=== PATIENT | female | born 1980 | race Caucasian/White ===

== ENCOUNTER 2017-01-03 22:07 | Emergency (ER) | payer OTHER, SELFPAY ==
[2017-01-03 22:30] VITALS: O2SAT 96
[2017-01-03] MEDS ORDERED: Zofran 4 MG/2 ML VIAL IV ONE (22:35)
[2017-01-03] MEDS ORDERED: Sodium Chloride 0.9% 1000 ML 1,000 ML IV STA (22:35)
[2017-01-03] MEDS ORDERED: PROTONIX 40 MG IV IV ONE ×2 (22:35→22:39)
--- NOTE | 2017-01-03 22:38 | ERPHSYRPT ---
- History of Present Illness Time Seen by Provider: 01/03/17 22:25 Historian: patient Exam Limitations: clinical condition Patient Subjective Stated Complaint: "i have been having stomach issues for the past 4 days. I quit drinking 4 weeks ago. i have drank for 18 years. i don't know what is wrong with me. I have vomioted 7-8 time in the last 24 hours. i drank tonight Triage Nursing Assessment: aox3, breathing easy unlabored, skin pink warm dry, steady gait, stronge smell of etoh noted Physician History: PATIENT WITH HISTORY OF ALCOHOL ABUSE, DRINKING TONIGHT HAS ASSOCIATED EPIGASTRIC PAINS WITH EMESIS. DENIES DIARRHEA, FEVER OR CHILLS. Timing/Duration: day(s) Activities at Onset: none Quality: cramping Abdominal Pain Onset Location: epigastric Pain Radiation: no radiation Severity of Pain-Max: moderate Severity of Pain-Current: moderate Associated Symptoms: nausea, vomiting Previous symptoms: no prior history Allergies/Adverse Reactions: haloperidol [From Haldol] Allergy (Mild, Verified 01/03/17 22:21) haloperidol lactate [From Haldol] Allergy (Mild, Verified 01/03/17 22:21) Hx Tetanus, Diphtheria Vaccination/Date Given: Yes Hx Influenza Vaccination/Date Given: No Hx Pneumococcal Vaccination/Date Given: No - Review of Systems Constitutional: No Fever, No Chills Eyes: No Symptoms Ears, Nose, & Throat: No Symptoms Respiratory: No Symptoms, No Cough, No Dyspnea Cardiac: No Symptoms, No Chest Pain, No Edema, No Syncope Abdominal/Gastrointestinal: Abdominal Pain, Nausea, Vomiting, No Diarrhea Genitourinary Symptoms: No Dysuria Musculoskeletal: No Back Pain, No Neck Pain Skin: No Symptoms, No Rash Neurological: No Dizziness, No Focal Weakness, No Sensory Changes Psychological: No Symptoms Endocrine: No Symptoms All Other Systems: Reviewed and Negative - Past Medical History Pertinent Past Medical History: Yes Neurological History: No Pertinent History ENT History: No Pertinent History Cardiac History: No Pertinent History Respiratory History: Asthma Endocrine Medical History: No Pertinent History Musculoskeletal History: Fractures GI Medical History: Hepatitis History: No Pertinent History Psycho-Social History: Bipolar Female Reproductive Disorders: Other Other Medical History: hepatitis C - Past Surgical History Past Surgical History: Yes Neuro Surgical History: No Pertinent History Cardiac: No Pertinent History Respiratory: No Pertinent History Gastrointestinal: No Pertinent History Musculoskeletal: No Pertinent History Female Surgical History: Section Other Surgical History: tubal ligation - Social History Smoking Status: Current every day smoker How long have you smoked: 25 YEARS Exposure to second hand smoke: Yes Drug Use: none Patient Lives Alone: No - Female History Hx Last Menstrual Period: 12/31/16 Hx Now: No - Nursing Vital Signs Nursing Vital Signs: Initial Vital Signs Temperature 97.9 F Temperature Source Oral Pulse Rate 107 Respiratory Rate 16 Blood Pressure [Right Arm] 115/79 Pain Intensity 0 - Physical Exam General Appearance: no apparent distress, alert Eye Exam: PERRL/EOMI, eyes nml inspection Ears, Nose, Throat Exam: normal ENT inspection, pharynx normal, moist mucous membranes Neck Exam: normal inspection, non-tender, supple, full range of motion Respiratory Exam: normal breath sounds, lungs clear, No respiratory distress Cardiovascular Exam: regular rate/rhythm, normal heart sounds Gastrointestinal/Abdomen Exam: soft, normal bowel sounds, tenderness ( EPIGASTRIC TENDERNESS), No mass Back Exam: normal inspection, normal range of motion, No CVA tenderness, No vertebral tenderness Extremity Exam: normal inspection, normal range of motion, pelvis stable Neurologic Exam: alert, oriented x 3, cooperative, normal mood/affect, nml cerebellar function, sensation nml, No motor deficits Skin Exam: normal color, warm, dry SpO2 Interpretation: normal SpO2: 96 Oxygen Delivery: Room Air Ordered Tests: Active Orders 24 hr Category Date Time Status IV Insertion STAT Care 01/03/17 22:35 Active AMYLASE Stat Lab 01/03/17 22:40 Completed CBC W DIFF Stat Lab 01/03/17 22:40 Completed CMP Stat Lab 01/03/17 22:40 Completed Ethyl Alcohol,Urine Stat Lab 01/03/17 23:25 Completed HCG,QUALITATIVE URINE Stat Lab 01/04/17 00:15 Completed LIPASE Stat Lab 01/03/17 22:40 Completed UA W/ MICROSCOPIC Stat Lab 01/03/17 23:25 Completed Urine Triage Profile Stat Lab 01/03/17 23:25 Completed Medication Summary Discontinued Medications Generic Name Dose Route Start Last Admin Trade Name Freq PRN Reason Stop Dose Admin Sodium Chloride 1,000 mls @ 999 mls/hr 01/03/17 22:35 01/03/17 22:44 Sodium Chloride 0.9% 1000 Ml IV 01/03/17 23:35 999 mls/hr .Q1H1M STA Administration Sodium Chloride Confirm 01/03/17 22:39 Sodium Chloride 0.9% 1000 Ml Administered 01/03/17 22:40 Dose 1,000 mls @ ud .ROUTE .STK-MED ONE Ondansetron HCl 4 mg 01/03/17 22:35 01/03/17 22:44 Zofran 4 Mg/2 Ml Vial IV 01/03/17 22:36 4 mg STAT ONE Administration Ondansetron HCl Confirm 01/03/17 22:39 Zofran 4 Mg/2 Ml Vial Administered 01/03/17 22:40 Dose 4 mg .ROUTE .STK-MED ONE Pantoprazole Sodium 40 mg 01/03/17 22:35 01/03/17 22:44 Protonix 40 Mg Iv IV 01/03/17 22:36 40 mg STAT ONE Administration Pantoprazole Sodium Confirm 01/03/17 22:39 Protonix 40 Mg Iv Administered 01/03/17 22:40 Dose 40 mg IV .STK-MED ONE Lab/Rad Data: Laboratory Result Diagrams 01/03/17 22:40 01/03/17 22:40 Laboratory Results 01/04/17 01/03/17 01/03/17 Range/Units 00:15 23:25 23:25 WBC (4.0-10.5) K/mm3 RBC (4.1-5.4) M/mm3 Hgb (12.0-16.0) gm/dl Hct (35-47) % MCV (78-100) fl MCH (26-32) pg MCHC (32-36) g/dl RDW (11.5-14.0) % Plt Count (150-450) K/mm3 MPV (6-9.5) fl Gran % (36.0-66.0) % Lymphocytes % (24.0-44.0) % Monocytes % (0.0-12.0) % Eosinophils % (0.00-5.0) % Basophils % (0.0-0.4) % Basophils # (0-0.4) Sodium (136-145) mEq/L Potassium (3.5-5.1) mEq/L Chloride (98-107) mEq/L Carbon Dioxide (21-32) mEq/L Anion Gap (5-15) MEQ/L BUN (9-20) mg/dL Creatinine (0.55-1.30) mg/dl Estimated GFR ML/MIN Glucose (70-110) MG/DL Calcium (8.5-10.1) mg/dL Total Bilirubin (0.2-1.0) mg/dL AST (15-37) U/L ALT (12-78) U/L Alkaline Phosphatase (46-116) U/L Serum Total Protein (6.4-8.2) gm/dL Albumin (3.4-5.0) g/dL Amylase (25-115) U/L Lipase (73-393) U/L Ur Collection Type Urine Color (YELLOW) Urine Appearance (CLEAR) Urine pH 5.5 (5-6) Ur Specific [place] (1.005-1.025) Urine Protein (Negative) Urine Glucose (UA) (NEGATIVE) mg/dL Urine Ketones (NEGATIVE) Urine Nitrite (NEGATIVE) Urine Bilirubin (NEGATIVE) Urine Urobilinogen (0-1) mg/dL Urine WBC (Auto) (NEGATIVE) Urine RBC (Auto) (0-5) Davide/ul Urine Microscopic RBC (0-2) /HPF Urine Microscopic WBC (0-5) /HPF Ur Epithelial Cells (FEW) /HPF Urine HCG, Qual NEGATIVE (Negative) Urine Opiates Level NEG. (NEGATIVE) Ur Methadone NEG. (NEGATIVE) Urine Barbiturates NEG. (NEGATIVE) Ur Phencyclidine (PCP) NEG. (NEGATIVE) Urine Amphetamine NEG. (NEGATIVE) U Benzodiazepine Level NEG. (NEGATIVE) Urine Cocaine NEG. (NEGATIVE) Urine Marijuana (THC) POS. (NEGATIVE) Urine Ethyl Alcohol 205 H (0.00-20) mg/dl Specimen Received 01/03/17 01/03/17 01/03/17 Range/Units 23:25 22:40 22:40 WBC 10.7 H (4.0-10.5) K/mm3 RBC 4.98 (4.1-5.4) M/mm3 Hgb 16.1 H (12.0-16.0) gm/dl Hct 47.6 H (35-47) % MCV 95.6 (78-100) fl MCH 32.3 H (26-32) pg MCHC 33.8 (32-36) g/dl RDW 12.0 (11.5-14.0) % Plt Count 308 (150-450) K/mm3 MPV 9.2 (6-9.5) fl Gran % 62.9 (36.0-66.0) % Lymphocytes % 29.4 (24.0-44.0) % Monocytes % 6.6 (0.0-12.0) % Eosinophils % 0.9 (0.00-5.0) % Basophils % 0.2 (0.0-0.4) % Basophils # 0.02 (0-0.4) Sodium 137 (136-145) mEq/L Potassium 3.5 (3.5-5.1) mEq/L Chloride 99 (98-107) mEq/L Carbon Dioxide 24.0 (21-32) mEq/L Anion Gap 17.1 H (5-15) MEQ/L BUN 5 L (9-20) mg/dL Creatinine 0.84 (0.55-1.30) mg/dl Estimated GFR > 60 ML/MIN Glucose 104 (70-110) MG/DL Calcium 8.9 (8.5-10.1) mg/dL Total Bilirubin 0.5 (0.2-1.0) mg/dL AST 88 H (15-37) U/L ALT 111 H (12-78) U/L Alkaline Phosphatase 75 (46-116) U/L Serum Total Protein 8.8 H (6.4-8.2) gm/dL Albumin 4.3 (3.4-5.0) g/dL Amylase 88 (25-115) U/L Lipase 316 (73-393) U/L Ur Collection Type CLEAN CATCH Urine Color LT.YELLOW (YELLOW) Urine Appearance CLEAR (CLEAR) Urine pH 5.5 (5-6) Ur Specific [place] <=1.005 (1.005-1.025) Urine Protein NEGATIVE (Negative) Urine Glucose (UA) NEGATIVE (NEGATIVE) mg/dL Urine Ketones NEGATIVE (NEGATIVE) Urine Nitrite NEGATIVE (NEGATIVE) Urine Bilirubin NEGATIVE (NEGATIVE) Urine Urobilinogen 0.2 (0-1) mg/dL Urine WBC (Auto) TRACE (NEGATIVE) Urine RBC (Auto) NEGATIVE (0-5) Davide/ul Urine Microscopic RBC 0-2 (0-2) /HPF Urine Microscopic WBC 0-2 (0-5) /HPF Ur Epithelial Cells FEW (FEW) /HPF Urine HCG, Qual (Negative) Urine Opiates Level (NEGATIVE) Ur Methadone (NEGATIVE) Urine Barbiturates (NEGATIVE) Ur Phencyclidine (PCP) (NEGATIVE) Urine Amphetamine (NEGATIVE) U Benzodiazepine Level (NEGATIVE) Urine Cocaine (NEGATIVE) Urine Marijuana (THC) (NEGATIVE) Urine Ethyl Alcohol (0.00-20) mg/dl Specimen Received 01/03/17 2330 - Progress Progress Note: 01/04/17 00:31 PATIENT ADMINISTERED IV NORMAL SALINE 1 LITER/HR, ZOFRAN 4MG, PROTONIX 40MG IV 01/04/17 00:32 PATIENT HAD NO EVIDENCE OF EMESIS THROUGHOUT HER EMERGENCY VISIT Counseled pt/family regarding: lab results, diagnosis, need for follow-up - Departure Time of Disposition: 00:40 Departure Disposition: Home Clinical Impression: ACUTE GASTRITIS, ALCOHOL INTOXICATION Condition: Stable Critical Care Time: No Referrals: DOCTOR,NO FAMILY [Primary Care Provider] - Additional Instructions: PEPCID 20MG TWICE DAILY FOR 2 WEEKS. ZOFRAN 4MG EVERY 4 HOURS FOR NAUSEA OR VOMITING. AVOID DRINKING ALCOHOL. CONSULT YOUR FAMILY PHYSICIAN FOR EVALUATION THIS WEEK. Prescriptions: Ondansetron [Zofran Odt] 4 mg PO Q4H PRN PRN #6 tab.rapdis PRN Reason: Nausea Famotidine 20 mg [Pepcid 20 MG] 20 mg PO BID #30 tablet
[2017-01-03] MEDS ORDERED: Sodium Chloride 0.9% 1000 ML 1,000 ML ONE (22:39)
[2017-01-03] MEDS ORDERED: Zofran 4 MG/2 ML VIAL ONE (22:39)
[2017-01-03 22:44] LABS: BASOPHIL % 0.2 % (0.0-0.4); Eosinophil % 0.9 % (0.00-5.0); Granulocytes % 62.9 % (36.0-66.0); Lymphocytes % 29.4 % (24.0-44.0); Mean Cell Volume 95.6 fl (78-100); Mean Corpuscular Hemoglobin 32.3 pg (26-32); Mean Platelet Volume 9.2 fl (6-9.5); Monocytes % 6.6 % (0.0-12.0); Platelet Count 308 K/mm3 (150-450); Red Blood Count 4.98 M/mm3 (4.1-5.4); White Blood Count 10.7 K/mm3 (4.0-10.5)
[2017-01-03 23:21] LABS: ALBUMIN 4.3 g/dL (3.4-5.0); ALKALINE PHOSPHATASE 75 U/L (46-116); ANION GAP 17.1 MEQ/L (5-15); BILIRUBIN,TOTAL 0.5 mg/dL (0.2-1.0); BLOOD UREA NITROGEN 5 mg/dL (9-20); CHLORIDE 99 mEq/L (98-107); Glucose 104 MG/DL (70-110); LIPASE 316 U/L (73-393); Potassium 3.5 mEq/L (3.5-5.1); SGOT/AST 88 U/L (15-37); SGPT/ALT 111 U/L (12-78); SODIUM 137 mEq/L (136-145); Total Protein 8.8 gm/dL (6.4-8.2)
[2017-01-04 00:11] LABS: COMPLETE URINE MICROSCOPIC? YES; Collection Type CLEAN CATCH; Epithelial Cells FEW /HPF (FEW); Ph 5.5 (5-6); WBC 0-2 /HPF (0-5)
[2017-01-04 00:50] VITALS: BP 128/82; PULSE 96
== END 2017-01-04 00:50 | disposition home or self-care (01) ==
LOC: ED 22:07
DX: K29.70 Gastritis, unspecified, without bleeding (principal); F10.129 Alcohol abuse with intoxication, unspecified; R11.2 Nausea with vomiting, unspecified; R10.13 Epigastric pain
CPT/HCPCS: 36000; 36415; 80053; 80307; 80320; 81000; 81002; 82150; 83690; 83986; 84703; 85025; 96374; 96375; 99284; J2405

== ENCOUNTER 2017-11-20 13:54 | Emergency (ER) | payer OTHER, SELFPAY ==
[2017-11-20 14:20] VITALS: O2SAT 99
[2017-11-20] MEDS ORDERED: ROCEPHIN 250 MG INJ IM ONE (14:44)
[2017-11-20] MEDS ORDERED: Zithromax 250 MG TABLET PO ONE (14:49)
[2017-11-20 14:52] LABS: Appearance CLOUDY (CLEAR); Bilirubin NEGATIVE (NEGATIVE); Blood 250 Ery/ul (0-5); Glucose NEGATIVE (NEGATIVE); Ketones NEGATIVE (NEGATIVE); Leukocyte Esterase 2+ (NEGATIVE); Nitrite NEGATIVE (NEGATIVE); Protein,Urine Dip TRACE (Negative); Specific Gravity 1.025 (1.005-1.025); Urobilinogen NORMAL mg/dL (0-1)
--- NOTE | 2017-11-20 14:55 | ERPHSYRPT ---
- History of Present Illness Time Seen by Provider: 11/20/17 14:05 Source: patient Patient Subjective Stated Complaint: pt here for vaginal discharge for 3 days now,yellow/green discharge Triage Nursing Assessment: pt alert, walked in resp easy, skin w/d/p Physician History: CC: vaginal discharge Hx: 36 y/o patient of Dr David with hx of Hep C. LMP normal. She has green foul smelling vaginal discharge for the past 3 days, started 2 days after unprotected intercourse with a new male partner 5 days ago. Only other sexual partner in past 6 months was a different female partner 4 months ago. She has burning and discharge. No fever, chills, abd pain. No prior hx of STD. Timing/Duration: day(s) (3) Severity of Pain-Max: severe Severity of Pain-Current: moderate Allergies/Adverse Reactions: haloperidol [From Haldol] Allergy (Mild, Verified 11/20/17 14:20) haloperidol lactate [From Haldol] Allergy (Mild, Verified 11/20/17 14:20) Hx Tetanus, Diphtheria Vaccination/Date Given: Yes Hx Influenza Vaccination/Date Given: No Hx Pneumococcal Vaccination/Date Given: No - Review of Systems Constitutional: No Fever, No Chills Eyes: No Symptoms Respiratory: No Dyspnea Cardiac: No Chest Pain Abdominal/Gastrointestinal: No Abdominal Pain, No Nausea, No Vomiting, No Diarrhea Genitourinary Symptoms: Dysuria, Vaginal Discharge, No Musculoskeletal: No Back Pain Skin: No Rash Neurological: No Headache All Other Systems: Reviewed and Negative - Past Medical History Pertinent Past Medical History: Yes Neurological History: No Pertinent History ENT History: No Pertinent History Cardiac History: No Pertinent History Respiratory History: Asthma Endocrine Medical History: No Pertinent History Musculoskeletal History: Fractures GI Medical History: Hepatitis History: No Pertinent History Psycho-Social History: Bipolar Female Reproductive Disorders: Other Other Medical History: hepatitis C - Past Surgical History Past Surgical History: Yes Neuro Surgical History: No Pertinent History Cardiac: No Pertinent History Respiratory: No Pertinent History Gastrointestinal: No Pertinent History Musculoskeletal: No Pertinent History Female Surgical History: Section Other Surgical History: tubal ligation - Social History Smoking Status: Current every day smoker How long have you smoked: 25 YEARS Exposure to second hand smoke: Yes Drug Use: marijuana Patient Lives Alone: No - Female History Hx Last Menstrual Period: 3 weeks ago Hx Now: No - Nursing Vital Signs Nursing Vital Signs: Initial Vital Signs Temperature 97.8 F 11/20/17 14:16 Pulse Rate 116 H 11/20/17 14:16 Respiratory Rate 16 11/20/17 14:16 Blood Pressure 125/91 11/20/17 14:16 O2 Sat by Pulse Oximetry 99 11/20/17 14:16 Pain Scale Pain Intensity 0 - Physical Exam General Appearance: alert Eye Exam: PERRL/EOMI Ears, Nose, Throat Exam: normal ENT inspection, moist mucous membranes Neck Exam: normal inspection, non-tender, supple Respiratory Exam: normal breath sounds Cardiovascular Exam: regular rate/rhythm Gastrointestinal/Abdomen Exam: soft, No tenderness, No distention, No mass, No guarding Pelvic Exam: normal external exam, vaginal discharge (green, raman), other ( friable pedunculated cervix with firm polypoid lesions), No adnexal tenderness, No cervical motion tenderness, No uterine tenderness Extremity Exam: normal inspection Neurologic Exam: alert, oriented x 3, cooperative Skin Exam: warm, dry, No rash SpO2: 99 Oxygen Delivery: Room Air - Course Nursing assessment & vital signs reviewed: Yes Ordered Tests: Active Orders 24 hr Category Date Time Status Cath for Specimen-Straight STAT Care 11/20/17 14:17 Active Pelvic Exam Assist STAT Care 11/20/17 14:16 Active CULTURE,URINE Stat Lab 11/20/17 14:30 Received HCG,QUALITATIVE URINE Stat Lab 11/20/17 14:25 Completed UA W/ MICROSCOPIC Stat Lab 11/20/17 14:30 Completed Wet Prep Stat Lab 11/20/17 14:30 Completed Medication Summary Discontinued Medications Generic Name Dose Route Start Last Admin Trade Name Bi PRN Reason Stop Dose Admin Azithromycin 1,000 mg 11/20/17 14:49 11/20/17 15:01 Zithromax 250 Mg Tablet PO 11/20/17 14:50 1,000 mg STAT ONE Administration Azithromycin Confirm 11/20/17 14:56 Zithromax 250 Mg Tablet Administered 11/20/17 14:57 Dose 1,000 mg .ROUTE .STK-MED ONE Ceftriaxone Sodium 250 mg 11/20/17 14:44 11/20/17 15:01 Rocephin 250 Mg Inj IM 11/20/17 14:45 250 mg STAT ONE Administration Ceftriaxone Sodium Confirm 11/20/17 14:57 Rocephin 500 Mg Inj Administered 11/20/17 14:58 Dose 500 mg .ROUTE .STK-MED ONE Lab/Rad Data: Laboratory Results 11/20/17 11/20/17 Range/Units 14:30 14:25 Ur Collection Type CCMS Urine Color YELLOW (YELLOW) Urine Appearance CLOUDY (CLEAR) Urine pH 5.0 (5-6) Ur Specific [place] 1.025 (1.005-1.025) Urine Protein TRACE (Negative) Urine Ketones NEGATIVE (NEGATIVE) Urine Blood 250 (0-5) Davide/ul Urine Nitrite NEGATIVE (NEGATIVE) Urine Bilirubin NEGATIVE (NEGATIVE) Urine Urobilinogen NORMAL (0-1) mg/dL Ur Leukocyte Esterase 2+ (NEGATIVE) Urine Microscopic RBC 5-10 (0-2) /HPF Urine Microscopic WBC 5-10 (0-5) /HPF Ur Epithelial Cells MANY (FEW) /HPF Urine Bacteria MANY (NEGATIVE) /HPF Urine Culture Reflexed YES (NO) Urine Glucose NEGATIVE (NEGATIVE) mg/dL Urine HCG, Qual NEGATIVE (Negative) WBC (Wet Prep) Many RBC (Wet Prep) Moderate Epi Cells (Wet Prep) Moderate Bacteria (Wet Prep) Many Clue Cells (Wet Prep) Moderate Trichomonas (Wet Prep) None Seen Budding Yeast (Wet Prp) None Seen Specimen Received 1430 11/20/17 - Progress Progress Note: 11/20/17 14:56 She spoke to her recent male partner and advised him she had discharge. He told her prior partners had told him the same thing. She declines cath UA, HIV, syphillis, or hep B testing. Rocephin/Zithromax given. Advised pt to see primary care or streetcar operator to obtain pap and pelvic exam as she has an abnormal appearing cervix which needs to be checked. 11/20/17 15:10 Trich negative. Counseled pt/family regarding: lab results, diagnosis, need for follow-up - Departure Time of Disposition: 15:11 Departure Disposition: Home Clinical Impression: Cervicitis Condition: Stable Critical Care Time: No Referrals: [facility] [NON-STAFF PHY W/O PRIVILEGES] - Instructions: Sexually-Transmitted Diseases (DC), STD Prevention Additional Instructions: Your sexual partners need to be tested and treated for STD's as well before intercourse. You need to follow up with Dr Bourgasser for pap smear and pelvic examination to recheck your cervix.
[2017-11-20] MEDS ORDERED: Zithromax 250 MG TABLET ONE (14:56)
[2017-11-20] MEDS ORDERED: Rocephin 500 MG INJ ONE (14:57)
[2017-11-20 15:06] LABS: Bacteria MANY /HPF (NEGATIVE); Bacteria Many; Clue Cells Moderate; Epithelial Cells MANY /HPF (FEW); Trichomonas None Seen
[2017-11-20 15:07] LABS: Red Blood Cells Moderate; White Blood Cells Many
[2017-11-20 15:31] VITALS: BP 113/80; PULSE 88
== END 2017-11-20 15:31 | disposition home or self-care (01) ==
LOC: ED 13:54
DX: N72 Inflammatory disease of cervix uteri (principal)
CPT/HCPCS: 81000; 84703; 87077; 87086; 87186; 87210; 87490; 87590; 96372; 99283; 99284; J0696; P9612; A9270-GY

== ENCOUNTER 2019-06-29 03:38 | Emergency (ER) | payer MEDICAID ==
[2019-06-29] MEDS ORDERED: Rocephin 1000 MG INJ IM ONE (04:01)
[2019-06-29] MEDS ORDERED: BACTRIM DS TABLET PO STA (04:01)
[2019-06-29] MEDS ORDERED: NORCO 5/325 MG PO ONE (04:02)
[2019-06-29] MEDS ORDERED: Rocephin 1000 MG INJ ONE (04:04)
[2019-06-29] MEDS ORDERED: BACTRIM DS TABLET PO ONE (04:04)
[2019-06-29] MEDS ORDERED: NORCO 5/325 MG ONE (04:04)
--- NOTE | 2019-06-29 04:07 | ERPHSYRPT ---
- History of Present Illness Time Seen by Provider: 06/29/19 03:50 Source: patient Exam Limitations: no limitations Patient Subjective Stated Complaint: pt states she has a knot near her vagina and has had increasing pain tonight. Triage Nursing Assessment: pt alert and oriented, answers questions approp. pt ambulatory with steady gait noted. respirations nonlabored with lungs cta. skin pink warm and dry. Physician History: painful, red, tender area near her vagina for last 2 days. Timing/Duration: day(s) (2) Quality: painful Severity: moderate Location: genitalia Possible Causes: no cause identified Associated Symptoms: edema, No blisters, No change in skin texture, No difficulty breathing, No fever, No flushing, No headache, No hives, No jaundice , No malaise, No nasal congestion, No numbness, No pallor, No paresthesia, No petechiae, No rash Allergies/Adverse Reactions: haloperidol [From Haldol] Allergy (Mild, Verified 11/20/17 14:20) haloperidol lactate [From Haldol] Allergy (Mild, Verified 11/20/17 14:20) Hx Tetanus, Diphtheria Vaccination/Date Given: Yes Hx Influenza Vaccination/Date Given: No Hx Pneumococcal Vaccination/Date Given: No Immunizations Up to Date: Yes - Review of Systems Constitutional: No Fever, No Chills Eyes: No Symptoms Ears, Nose, & Throat: No Symptoms Respiratory: No Cough, No Dyspnea Cardiac: No Chest Pain, No Edema, No Syncope Abdominal/Gastrointestinal: No Abdominal Pain, No Nausea, No Vomiting, No Diarrhea Genitourinary Symptoms: No Dysuria Musculoskeletal: Other (painful, red, tender area near her vagina), No Back Pain , No Neck Pain Skin: Other (painful, red, tender area near her vagina), No Rash Neurological: No Dizziness, No Focal Weakness, No Sensory Changes Psychological: No Symptoms Endocrine: No Symptoms All Other Systems: Reviewed and Negative - Past Medical History Pertinent Past Medical History: Yes Neurological History: No Pertinent History ENT History: No Pertinent History Cardiac History: No Pertinent History Respiratory History: Asthma Endocrine Medical History: No Pertinent History Musculoskeletal History: Fractures GI Medical History: Hepatitis History: No Pertinent History Psycho-Social History: Bipolar Female Reproductive Disorders: Other Other Medical History: hepatitis C - Past Surgical History Past Surgical History: Yes Neuro Surgical History: No Pertinent History Cardiac: No Pertinent History Respiratory: No Pertinent History Gastrointestinal: No Pertinent History Musculoskeletal: No Pertinent History Female Surgical History: Section Other Surgical History: tubal ligation, cold cone - Social History Smoking Status: Current every day smoker How long have you smoked: 25 YEARS Exposure to second hand smoke: Yes Drug Use: marijuana, methamphetamines Patient Lives Alone: No - Female History Hx Last Menstrual Period: 3 weeks ago Hx Now: No - Nursing Vital Signs Nursing Vital Signs: Initial Vital Signs Temperature 97.9 F 06/29/19 03:46 Pulse Rate 105 H 06/29/19 03:46 Respiratory Rate 16 06/29/19 03:46 Blood Pressure 128/84 06/29/19 03:46 O2 Sat by Pulse Oximetry 99 06/29/19 03:46 Pain Scale Pain Intensity 6 - Physical Exam General Appearance: no apparent distress, alert Eye Exam: PERRL/EOMI, eyes nml inspection Ears, Nose, Throat Exam: normal ENT inspection, pharynx normal, moist mucous membranes Neck Exam: normal inspection, non-tender, supple, full range of motion Respiratory Exam: normal breath sounds, lungs clear, No respiratory distress Cardiovascular Exam: regular rate/rhythm, normal heart sounds Gastrointestinal/Abdomen Exam: soft, mass, No tenderness Pelvic Exam: other (painful, red, tender area near her vagina C/W Folliculitis) Back Exam: normal inspection, normal range of motion, No CVA tenderness, No vertebral tenderness Extremity Exam: normal inspection, normal range of motion Neurologic Exam: alert, oriented x 3, cooperative, normal mood/affect, sensation nml, No motor deficits Skin Exam: normal color, warm, dry, other (painful, red, tender area near her vagina C/W Folliculitis) SpO2 Interpretation: normal SpO2: 99 O2 Delivery: Room Air - Course Nursing assessment & vital signs reviewed: Yes - Progress Progress: unchanged Progress Note: 06/29/19 04:05 stable Counseled pt/family regarding: diagnosis, need for follow-up - Departure Departure Disposition: Home Clinical Impression: Folliculitis Condition: Stable Critical Care Time: No Referrals: DOCTOR,NO FAMILY [Primary Care Provider] - 06/30/19 Instructions: Folliculitis (DC) Prescriptions: Cephalexin Mh 500 mg [Keflex 500 mg] 500 mg PO BID 7 Days #14 capsule Smz/Tmp Ds Tablet [Bactrim Ds Tablet] 1 udtab PO BID #14 tablet
[2019-06-29 04:41] VITALS: BP 126/87; PULSE 90; O2SAT 97
== END 2019-06-29 04:41 | disposition home or self-care (01) ==
LOC: ED 03:38
DX: L73.8 Other specified follicular disorders (principal)
CPT/HCPCS: 96372; 99284; J0696; A9270-GY

== ENCOUNTER 2019-10-20 22:43 | Emergency (ER) | payer MEDICAID ==
[2012-08-01 13:26] VITALS: BP 130/69
[2019-10-20] MEDS ORDERED: Zofran 4 MG/2 ML VIAL IV ONE (22:50)
[2019-10-20] MEDS ORDERED: Sodium Chloride 0.9% 1000 ML 1,000 ML IV STA (22:50)
[2019-10-20] MEDS ORDERED: Golytely Solution 4000 ML PO ONE (23:00)
[2019-10-20] MEDS ORDERED: Sodium Chloride 0.9% 1000 ML 0 ML ONE (23:09)
[2019-10-20] MEDS ORDERED: Zofran 4 MG/2 ML VIAL ONE ×2 (23:09→23:34)
[2019-10-20 23:17] LABS: Absolute Neutrophil Ct (ANC) 4.65 (1.4-6.9); BASOPHIL % 0.2 % (0.0-0.4); Basophil (Absolute #) 0.02 (0-0.4); Eosinophil % 3.7 % (0.00-5.0); Hematocrit 43.4 % (35-47); Hemoglobin 14.3 gm/dl (12.0-16.0); Lymphocyte (Absolute #) 2.46 (1.0-4.6); Lymphocytes % 30.7 % (24.0-44.0); Mean Cell Volume 94.3 fl (78-100); Mean Corpuscular Hemoglobin 31.1 pg (26-32); Mean Corpuscular Hgb Concent. 32.9 g/dl (32-36); Mean Platelet Volume 9.8 fl (7.5-11.0); Monocyte (Absolute #) 0.58 (0.0-1.3); Monocytes % 7.2 % (0.0-12.0); Neutrophil % 58.2 % (36.0-66.0); Platelet Count 150 K/mm3 (150-450); Red Cell Distribution Width 12.5 % (11.5-14.0)
[2019-10-20] MEDS ORDERED: Sodium Chloride 0.9% 1000 ML 1,000 ML ONE (23:35)
[2019-10-20 23:44] LABS: Appearance SLIGHTLY CLOUDY (CLEAR); Bilirubin NEGATIVE (NEGATIVE); Blood NEGATIVE Ery/ul (0-5); Epithelial Cells RARE /HPF (FEW); Glucose NEGATIVE (NEGATIVE); Hyaline Casts 0-2 /LPF (0-2); Ketones NEGATIVE (NEGATIVE); Leukocyte Esterase TRACE (NEGATIVE); Mucus SLIGHT /HPF (NEGATIVE); Nitrite NEGATIVE (NEGATIVE); Protein,Urine Dip 30 (Negative); RBC 0-2 /HPF (0-2); Specific Gravity 1.021 (1.005-1.025); Urobilinogen 4 mg/dL (0-1)
[2019-10-20 23:50] LABS: Slide Review 1 YES
[2019-10-20 23:52] LABS: Barbiturate,Urine NEGATIVE (NEGATIVE); Benzodiazepine,Urine NEGATIVE (NEGATIVE); Cocaine,Urine NEGATIVE (NEGATIVE); Methadone,Urine NEGATIVE (NEGATIVE); Opiate,Urine NEGATIVE (NEGATIVE); PCP,Urine NEGATIVE (NEGATIVE); THC,Urine POSITIVE (NEGATIVE)
[2019-10-21 00:17] LABS: Amphetamine,Urine POSITIVE (NEGATIVE)
[2019-10-21 01:12] LABS: ALBUMIN 4.7 g/dL (3.5-5.0); ALKALINE PHOSPHATASE 92 U/L (38-126); AMYLASE 96 U/L (30-110); ANION GAP 13.3 MEQ/L (5-15); BLOOD UREA NITROGEN 13 mg/dL (7-17); CHLORIDE 103 mmol/L (98-107); Calcium 9.2 mg/dL (8.4-10.2); Carbon Dioxide 26 mmol/L (22-30); Creatinine 1 0.84 mg/dL (0.52-1.04); Glucose 121 mg/dL (74-106); LIPASE 82 U/L (23-300); Potassium 3.9 mmol/L (3.5-5.1); SGOT/AST 29 U/L (14-36); SGPT/ALT 20 U/L (0-35); SODIUM 139 mmol/L (137-145); Total Protein 9.2 g/dL (6.3-8.2)
[2019-10-21] MEDS ORDERED: CITROMA 296 ML ONE (04:36)
[2019-10-21] MEDS ORDERED: CITROMA 296 ML PO ONE (04:41)
--- NOTE | 2019-10-21 06:26 | ERPHSYRPT ---
- History of Present Illness Patient Subjective Stated Complaint: PT BROUGHT IN BY LAW [employer], PT HAS SWALLOWED A BAG OF MARIJUANA AND POLICE STATE THEY ARE UNSURE WHAT ELSE SHE HAS TAKEN Triage Nursing Assessment: PT ALERT AND ORIENTED, PT CURSING AND STATING THAT SHE HAS NOT TAKEN ANYTHING ELSE BUT THE BAG OF MARIJUANA. PT VITALS WNL Timing/Duration: yesterday Context related to: living circumstances Suicidal thoughts: ingestion Associated Symptoms: angry, agitated, hostile Previous symptoms: no recent treatment <ATIYA MCLEAN - Last Filed: 10/21/19 06:20> <ROXANA CAM - Last Filed: 10/21/19 08:08> - History of Present Illness Physician History: patient is a 38-year-old female was arrested by police. She was searched and was found to have a pipe her person. There was also meth in the car. she also had a pistol in her car and at one point said she was to use it to commit suicide. She was then noted to take a small plastic bag from her pocket and attempted to swallow it. she choked and had to have a Heimlich.. The bag did come up but she immediately swallowed it again. She is adamant that it was only marijuana. (ATIYA MCLEAN) Allergies/Adverse Reactions: haloperidol [From Haldol] Allergy (Verified 10/20/19 23:16) - Past Medical History Pertinent Past Medical History: Yes Other Medical History: DEPRESSION, ANXIETY - Past Surgical History Past Surgical History: Yes Other Surgical History: C SECTIION,CERVICAL SURGERY - Social History Smoking Status: Current every day smoker Drug Use: marijuana - Female History Hx Now: No <ATIYA MCLEAN - Last Filed: 10/21/19 06:20> - Review of Systems Constitutional: No Fever, No Chills Psychological: Suicidal Ideations, Emotional Lability <ATIYA MCLEAN - Last Filed: 10/21/19 06:20> - Physical Exam General Appearance: no apparent distress Eyes, Ears, Nose, Throat Exam: normal ENT inspection, moist mucous membranes Neck Exam: normal inspection, non-tender, supple Respiratory Exam: normal breath sounds, lungs clear, No respiratory distress Cardiovascular Exam: regular rate/rhythm, No edema Gastrointestinal/Abdominal Exam: soft, No tenderness, No distention Extremities Exam: normal inspection, normal range of motion, No evidence of injury, No edema Current Suicidality: denies suicide plan Neurological Exam: alert, 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, oriented x 3 Appearance: no memory impairment, impaired insight Behavior/Eye Contact/Speech: good eye contact, belligerent, agitated, intoxicated appearance Thoughts/Hallucinations: persecution Skin Exam: normal color, warm, dry, No rash SpO2 Interpretation: normal SpO2: 99 O2 Delivery: Room Air <ATIYA MCLEAN - Last Filed: 10/21/19 06:20> - Nursing Vital Signs Nursing Vital Signs: Initial Vital Signs Temperature 98.3 F 10/20/19 22:58 Pulse Rate 110 H 10/20/19 22:58 Respiratory Rate 18 10/20/19 22:58 Blood Pressure 122/97 10/20/19 22:58 O2 Sat by Pulse Oximetry 94 L 10/20/19 22:58 Pain Scale Pain Intensity 0 - Course Nursing assessment & vital signs reviewed: Yes <ATIYA MCLEAN - Last Filed: 10/21/19 06:20> Ordered Tests: Active Orders 24 hr Category Date Time Status IV Insertion STAT Care 10/20/19 22:50 Active ABDOMEN 2 VIEW Stat Exams 10/21/19 00:04 Taken ACETAMINOPHEN Stat Lab 10/20/19 23:34 Completed AMYLASE Stat Lab 10/20/19 22:50 Completed CBC W DIFF Stat Lab 10/20/19 22:50 Completed CMP Stat Lab 10/20/19 22:50 Completed CULTURE,URINE Stat Lab 10/20/19 23:36 Received HCG QUALITATIVE,SERUM Stat Lab 10/20/19 23:24 Completed LIPASE Stat Lab 10/20/19 22:50 Completed Lactic Acid Stat Lab 10/20/19 22:50 Completed UA W/RFX UR CULTURE Stat Lab 10/20/19 23:36 Completed Urine Triage Profile Stat Lab 10/20/19 23:36 Completed Medication Summary Discontinued Medications Generic Name Dose Route Start Last Admin Trade Name Freq PRN Reason Stop Dose Admin Sodium Chloride 1,000 mls @ 999 mls/hr 10/20/19 22:50 10/21/19 00:00 Sodium Chloride 0.9% 1000 Ml IV 10/20/19 23:50 Not Given .Q1H1M STA Sodium Chloride Confirm 10/20/19 23:09 Sodium Chloride 0.9% 1000 Ml Administered 10/20/19 23:10 Dose 1,000 mls @ ud .ROUTE .STK-MED ONE Sodium Chloride Confirm 10/20/19 23:35 Sodium Chloride 0.9% 1000 Ml Administered 10/20/19 23:36 Dose 1,000 mls @ ud .ROUTE .STK-MED ONE Magnesium Citrate Confirm 10/21/19 04:36 Citroma 296 Ml Administered 10/21/19 04:37 Dose 296 ml .ROUTE .STK-MED ONE Magnesium Citrate 296 ml 10/21/19 04:41 10/21/19 04:43 Citroma 296 Ml PO 10/21/19 04:42 296 ml STAT ONE Administration Ondansetron HCl 4 mg 10/20/19 22:50 10/20/19 23:59 Zofran 4 Mg/2 Ml Vial IV 10/20/19 22:51 Not Given STAT ONE Ondansetron HCl Confirm 10/20/19 23:09 Zofran 4 Mg/2 Ml Vial Administered 10/20/19 23:10 Dose 4 mg .ROUTE .STK-MED ONE Ondansetron HCl Confirm 10/20/19 23:34 Zofran 4 Mg/2 Ml Vial Administered 10/20/19 23:35 Dose 4 mg .ROUTE .STK-MED ONE Polyethylene Glycol/Electrolytes 4,000 ml 10/20/19 23:00 10/20/19 23:26 Golytely Solution 4000 Ml PO 10/20/19 23:01 4,000 ml ONCE@1400 ONE Administration Lab/Rad Data: Laboratory Result Diagrams 10/20/19 22:50 10/20/19 22:50 Laboratory Results 10/21/19 10/20/19 10/20/19 Range/Units 00:48 23:36 23:36 WBC (4.0-10.5) K/mm3 RBC (4.1-5.4) M/mm3 Hgb (12.0-16.0) gm/dl Hct (35-47) % MCV (78-100) fl MCH (26-32) pg MCHC (32-36) g/dl RDW (11.5-14.0) % Plt Count (150-450) K/mm3 MPV (7.5-11.0) fl Gran % (36.0-66.0) % Eos # (Auto) (0-0.5) Absolute Lymphs (auto) (1.0-4.6) Absolute Monos (auto) (0.0-1.3) Lymphocytes % (24.0-44.0) % Monocytes % (0.0-12.0) % Eosinophils % (0.00-5.0) % Basophils % (0.0-0.4) % Absolute Granulocytes (1.4-6.9) Basophils # (0-0.4) Sodium (137-145) mmol/L Potassium (3.5-5.1) mmol/L Chloride (98-107) mmol/L Carbon Dioxide (22-30) mmol/L Anion Gap (5-15) MEQ/L BUN (7-17) mg/dL Creatinine (0.52-1.04) mg/dL Estimated GFR ML/MIN Glucose (74-106) mg/dL Lactic Acid 1.0 (0.4-2.0) Calcium (8.4-10.2) mg/dL Total Bilirubin (0.2-1.3) mg/dL AST (14-36) U/L ALT (0-35) U/L Alkaline Phosphatase (38-126) U/L Serum Total Protein (6.3-8.2) g/dL Albumin (3.5-5.0) g/dL Amylase (30-110) U/L Lipase (23-300) U/L Serum , Qual (Negative) Urine Color YELLOW (YELLOW) Urine Appearance SLIGHTLY CLOUDY (CLEAR) Urine pH 5.0 (5-6) Ur Specific [place] 1.021 (1.005-1.025) Urine Protein 30 (Negative) Urine Ketones NEGATIVE (NEGATIVE) Urine Blood NEGATIVE (0-5) Davide/ul Urine Nitrite NEGATIVE (NEGATIVE) Urine Bilirubin NEGATIVE (NEGATIVE) Urine Urobilinogen 4 (0-1) mg/dL Ur Leukocyte Esterase TRACE (NEGATIVE) Urine WBC (Auto) 3-5 (0-5) /HPF Urine RBC (Auto) 0-2 (0-2) /HPF U Hyaline Cast (Auto) 0-2 (0-2) /LPF U Epithel Cells (Auto) RARE (FEW) /HPF Urine Bacteria (Auto) NONE (NEGATIVE) /HPF Granular Casts (Auto) 5-10 (NEGATIVE) /LPF Urine Mucus (Auto) SLIGHT (NEGATIVE) /HPF Urine Culture Reflexed YES (NO) Urine Glucose NEGATIVE (NEGATIVE) mg/dL Urine Opiates Level NEGATIVE (NEGATIVE) Ur Methadone NEGATIVE (NEGATIVE) Acetaminophen (10-30) ug/ml Urine Barbiturates NEGATIVE (NEGATIVE) Ur Phencyclidine (PCP) NEGATIVE (NEGATIVE) Urine Amphetamine POSITIVE (NEGATIVE) U Benzodiazepine Level NEGATIVE (NEGATIVE) Urine Cocaine NEGATIVE (NEGATIVE) Urine Marijuana (THC) POSITIVE (NEGATIVE) Slides for Path Review 10/20/19 10/20/19 10/20/19 Range/Units 23:34 23:24 22:50 WBC (4.0-10.5) K/mm3 RBC (4.1-5.4) M/mm3 Hgb (12.0-16.0) gm/dl Hct (35-47) % MCV (78-100) fl MCH (26-32) pg MCHC (32-36) g/dl RDW (11.5-14.0) % Plt Count (150-450) K/mm3 MPV (7.5-11.0) fl Gran % (36.0-66.0) % Eos # (Auto) (0-0.5) Absolute Lymphs (auto) (1.0-4.6) Absolute Monos (auto) (0.0-1.3) Lymphocytes % (24.0-44.0) % Monocytes % (0.0-12.0) % Eosinophils % (0.00-5.0) % Basophils % (0.0-0.4) % Absolute Granulocytes (1.4-6.9) Basophils # (0-0.4) Sodium 139 (137-145) mmol/L Potassium 3.9 (3.5-5.1) mmol/L Chloride 103 (98-107) mmol/L Carbon Dioxide 26 (22-30) mmol/L Anion Gap 13.3 (5-15) MEQ/L BUN 13 (7-17) mg/dL Creatinine 0.84 (0.52-1.04) mg/dL Estimated GFR > 60.0 ML/MIN Glucose 121 H (74-106) mg/dL Lactic Acid (0.4-2.0) Calcium 9.2 (8.4-10.2) mg/dL Total Bilirubin 0.60 (0.2-1.3) mg/dL AST 29 (14-36) U/L ALT 20 (0-35) U/L Alkaline Phosphatase 92 (38-126) U/L Serum Total Protein 9.2 H (6.3-8.2) g/dL Albumin 4.7 (3.5-5.0) g/dL Amylase 96 (30-110) U/L Lipase 82 (23-300) U/L Serum , Qual NEGATIVE (Negative) Urine Color (YELLOW) Urine Appearance (CLEAR) Urine pH (5-6) Ur Specific [place] (1.005-1.025) Urine Protein (Negative) Urine Ketones (NEGATIVE) Urine Blood (0-5) Davide/ul Urine Nitrite (NEGATIVE) Urine Bilirubin (NEGATIVE) Urine Urobilinogen (0-1) mg/dL Ur Leukocyte Esterase (NEGATIVE) Urine WBC (Auto) (0-5) /HPF Urine RBC (Auto) (0-2) /HPF U Hyaline Cast (Auto) (0-2) /LPF U Epithel Cells (Auto) (FEW) /HPF Urine Bacteria (Auto) (NEGATIVE) /HPF Granular Casts (Auto) (NEGATIVE) /LPF Urine Mucus (Auto) (NEGATIVE) /HPF Urine Culture Reflexed (NO) Urine Glucose (NEGATIVE) mg/dL Urine Opiates Level (NEGATIVE) Ur Methadone (NEGATIVE) Acetaminophen < 10 L (10-30) ug/ml Urine Barbiturates (NEGATIVE) Ur Phencyclidine (PCP) (NEGATIVE) Urine Amphetamine (NEGATIVE) U Benzodiazepine Level (NEGATIVE) Urine Cocaine (NEGATIVE) Urine Marijuana (THC) (NEGATIVE) Slides for Path Review 10/20/19 Range/Units 22:50 WBC 8.0 (4.0-10.5) K/mm3 RBC 4.60 (4.1-5.4) M/mm3 Hgb 14.3 (12.0-16.0) gm/dl Hct 43.4 (35-47) % MCV 94.3 (78-100) fl MCH 31.1 (26-32) pg MCHC 32.9 (32-36) g/dl RDW 12.5 (11.5-14.0) % Plt Count 150 (150-450) K/mm3 MPV 9.8 (7.5-11.0) fl Gran % 58.2 (36.0-66.0) % Eos # (Auto) 0.30 (0-0.5) Absolute Lymphs (auto) 2.46 (1.0-4.6) Absolute Monos (auto) 0.58 (0.0-1.3) Lymphocytes % 30.7 (24.0-44.0) % Monocytes % 7.2 (0.0-12.0) % Eosinophils % 3.7 (0.00-5.0) % Basophils % 0.2 (0.0-0.4) % Absolute Granulocytes 4.65 (1.4-6.9) Basophils # 0.02 (0-0.4) Sodium (137-145) mmol/L Potassium (3.5-5.1) mmol/L Chloride (98-107) mmol/L Carbon Dioxide (22-30) mmol/L Anion Gap (5-15) MEQ/L BUN (7-17) mg/dL Creatinine (0.52-1.04) mg/dL Estimated GFR ML/MIN Glucose (74-106) mg/dL Lactic Acid (0.4-2.0) Calcium (8.4-10.2) mg/dL Total Bilirubin (0.2-1.3) mg/dL AST (14-36) U/L ALT (0-35) U/L Alkaline Phosphatase (38-126) U/L Serum Total Protein (6.3-8.2) g/dL Albumin (3.5-5.0) g/dL Amylase (30-110) U/L Lipase (23-300) U/L Serum , Qual (Negative) Urine Color (YELLOW) Urine Appearance (CLEAR) Urine pH (5-6) Ur Specific [place] (1.005-1.025) Urine Protein (Negative) Urine Ketones (NEGATIVE) Urine Blood (0-5) Davide/ul Urine Nitrite (NEGATIVE) Urine Bilirubin (NEGATIVE) Urine Urobilinogen (0-1) mg/dL Ur Leukocyte Esterase (NEGATIVE) Urine WBC (Auto) (0-5) /HPF Urine RBC (Auto) (0-2) /HPF U Hyaline Cast (Auto) (0-2) /LPF U Epithel Cells (Auto) (FEW) /HPF Urine Bacteria (Auto) (NEGATIVE) /HPF Granular Casts (Auto) (NEGATIVE) /LPF Urine Mucus (Auto) (NEGATIVE) /HPF Urine Culture Reflexed (NO) Urine Glucose (NEGATIVE) mg/dL Urine Opiates Level (NEGATIVE) Ur Methadone (NEGATIVE) Acetaminophen (10-30) ug/ml Urine Barbiturates (NEGATIVE) Ur Phencyclidine (PCP) (NEGATIVE) Urine Amphetamine (NEGATIVE) U Benzodiazepine Level (NEGATIVE) Urine Cocaine (NEGATIVE) Urine Marijuana (THC) (NEGATIVE) Slides for Path Review YES - Progress Progress: improved <ATIYA MCLEAN - Last Filed: 10/21/19 06:20> - Progress Progress: improved Discussed with : Carmen ([facility]) Counseled pt/family regarding: lab results, diagnosis, need for follow-up <ROXANA CAM - Last Filed: 10/21/19 08:08> - Departure Departure Disposition: Transfer (he is here is) Critical Care Time: No <ATIYA MCLEAN - Last Filed: 10/21/19 06:20> - Departure Departure Disposition: Transfer ([facility]) <ROXANA CAM - Last Filed: 10/21/19 08:08> - Departure Clinical Impression: Suicidal ideation Condition: Stable Referrals: DOCTOR,NO FAMILY [Primary Care Provider] -
--- NOTE | 2019-10-21 08:45 | XRAY ---
Indication: Foreign body. Comparison: None Single AP chest/abdomen/pelvis negative for radiopaque foreign body. Normal heart, lungs, and bony thorax. Nonspecific nonobstructed bowel gas pattern with mild scattered colonic fecal debris throughout. Remaining solid organs unremarkable. Osseous structures intact with incidental left proximal femur bone cyst. Impression: Negative for radiographic foreign body. Normal 1 view chest. Mild fecal stasis without obstruction. Incidental left femur bone cyst.
[2019-10-21 10:27] VITALS: BP 116/76; PULSE 79; O2SAT 97
== END 2019-10-21 11:30 | disposition short-term general hospital (02) ==
LOC: ED 22:43 → MERGE 22:43 → ED 10-21 11:30
DX: R45.851 Suicidal ideations (principal)
CPT/HCPCS: 36415; 74021; 80053; 80307; 81001; 81025; 82150; 83605; 83690; 85025; 87077; 87086; 87186; 99285; G0481; J2405; A9270-GY

== ENCOUNTER 2020-12-04 13:50 | Emergency (ER) | payer MEDICAID ==
[2020-12-04 15:23] VITALS: O2SAT 98
[2020-12-04] MEDS ORDERED: XYLOCAINE 2% HCL 20 ML MDV IJ ONE (16:16)
[2020-12-04] MEDS ORDERED: XYLOCAINE 2% HCL 20 ML MDV ONE (16:18)
[2020-12-04] MEDS ORDERED: BACTRIM DS TABLET PO STA (16:46)
--- NOTE | 2020-12-04 16:50 | ERPHSYRPT ---
- History of Present Illness Time Seen by Provider: 12/04/20 14:00 Source: patient Exam Limitations: no limitations Patient Subjective Stated Complaint: abscess Triage Nursing Assessment: pt to ED c/o pain and possible abscess to R labia. pt states that she had dull throbbing pain in R labial area. pt rates 7/10 pain. on assessment R labia appears to be swollen and reddened. pt states it is very tender to palpation. Physician History: Patient is a 40-year-old female presents to our ED for evaluation of swelling to her right labia majora. Patient noticed symptoms/swelling today. Pain described as an ache that is well localized. No radiation. Patient denies a history of the same. Pain worse with palpation. Pain improves with rest. Patient has no other symptomology. No intravaginal pain or discharge. No abdominal pain. Patient denies trauma. No fever. Symptoms are mild to moderate in intensity. Patient states she is otherwise healthy. She voices no other complaints at this time. Timing/Duration: today Activites at Onset: none Quality: aching Onset Location: vaginal (Right labia majora) Pain Radiation: none Severity of Pain-Max: moderate Severity of Pain-Current: mild Prior abdominal problems: none Sexual intercourse history: non-contributory (Patient states she is not sexually active at this time.) Modifying Factors: Improves With: nothing Associated Symptoms: denies symptoms, No fever, No chills, No diaphoresis, No vomiting, No dysuria, No nocturia, No polyuria, No urinary frequency, No Allergies/Adverse Reactions: haloperidol [From Haldol] Allergy (Mild, Verified 12/04/20 14:19) haloperidol lactate [From Haldol] Allergy (Mild, Verified 12/04/20 14:19) Hx Tetanus, Diphtheria Vaccination/Date Given: Yes Hx Influenza Vaccination/Date Given: No Hx Pneumococcal Vaccination/Date Given: No Travel Risk - International Travel Have you traveled outside of the country in past 3 weeks: No - Coronavirus Screening Are you exhibiting any of the following symptoms?: No Close contact with a COVID-19 positive Pt in past 14-21 Days: No - Review of Systems Constitutional: No Symptoms, No Fever, No Chills Eyes: No Symptoms Ears, Nose, & Throat: No Symptoms Respiratory: No Symptoms, No Cough, No Dyspnea Cardiac: No Symptoms, No Chest Pain, No Edema, No Syncope Abdominal/Gastrointestinal: No Symptoms, No Abdominal Pain, No Nausea, No Vomiting, No Diarrhea Genitourinary Symptoms: No Symptoms, No Dysuria Musculoskeletal: No Symptoms, No Back Pain, No Neck Pain Skin: No Symptoms, No Rash Neurological: No Symptoms, No Dizziness, No Focal Weakness, No Sensory Changes Psychological: No Symptoms Endocrine: No Symptoms Hematologic/Lymphatic: No Symptoms Immunological/Allergic: No Symptoms All Other Systems: Reviewed and Negative - Past Medical History Pertinent Past Medical History: Yes Neurological History: No Pertinent History ENT History: No Pertinent History Cardiac History: No Pertinent History Respiratory History: Asthma Endocrine Medical History: No Pertinent History Musculoskeletal History: Fractures GI Medical History: Hepatitis History: No Pertinent History Psycho-Social History: Bipolar Female Reproductive Disorders: Other Other Medical History: hepatitis C - Past Surgical History Past Surgical History: Yes Neuro Surgical History: No Pertinent History Cardiac: No Pertinent History Respiratory: No Pertinent History Gastrointestinal: No Pertinent History Musculoskeletal: No Pertinent History Female Surgical History: Section Other Surgical History: tubal ligation, cold cone - Social History Smoking Status: Current every day smoker How long have you smoked: 25 YEARS Exposure to second hand smoke: No Drug Use: none Patient Lives Alone: No - Female History Hx Now: No - Nursing Vital Signs Nursing Vital Signs: Initial Vital Signs Temperature 98.1 F 12/04/20 13:55 Pulse Rate 104 H 12/04/20 13:55 Respiratory Rate 18 12/04/20 13:55 Blood Pressure 146/99 12/04/20 13:55 O2 Sat by Pulse Oximetry 100 12/04/20 13:55 Pain Scale Pain Intensity 6 - Physical Exam General Appearance: no apparent distress, alert Eye Exam: PERRL/EOMI, eyes nml inspection Ears, Nose, Throat Exam: normal ENT inspection, TMs normal, pharynx normal, moist mucous membranes Neck Exam: normal inspection, non-tender, supple, full range of motion Respiratory Exam: normal breath sounds, lungs clear, No chest tenderness, No respiratory distress Cardiovascular Exam: regular rate/rhythm, normal heart sounds, normal peripheral pulses Gastrointestinal/Abdomen Exam: soft, No tenderness, No mass Pelvic Exam: No vaginal bleeding Back Exam: normal inspection, normal range of motion, No CVA tenderness, No vertebral tenderness Extremity Exam: normal inspection, normal range of motion, pelvis stable Neurologic Exam: alert, oriented x 3, cooperative, spot remover II-XII nml as tested, normal mood/affect, sensation nml, No motor deficits Skin Exam: normal color, warm, dry Lymphatic Exam: No adenopathy SpO2 Interpretation: normal SpO2: 98 O2 Delivery: Room Air Procedures - Incision and Drainage Time of Procedure: 16:35 Timeout: Performed Site: Mucosal aspect of right labia majora cc's of anesthesia: 3 Blade Size: 10 I & D Procedure: sterile drapes applied (Alcohol wipe used to prep the area.), sterile dressing applied, culture obtained Results: moderate amount pus Progress: Procedure was performed with the assistance of RN in the room. Incision was made with a 10 blade. Moderate amount of purulent drainage expressed. Loculations were disrupted using a hemostat. The incision was then packed using quarter inch iodoform gauze. Excellent hemostasis obtained. Patient tolerated procedure well. No immediate complications. Patient received a dose of Bactrim in our ED. A prescription for the same was provided. Patient agrees to follow- up with her primary care doctor within 48 hours for reevaluation. If patient cannot see her primary care doctor patient may return to our ED for an evaluation. - Course Nursing assessment & vital signs reviewed: Yes Ordered Tests: Active Orders 24 hr Category Date Time Status CULTURE,WOUND Stat Lab 12/04/20 16:19 Ordered Medication Summary Discontinued Medications Generic Name Dose Route Start Last Admin Trade Name Bi PRN Reason Stop Dose Admin Lidocaine HCl 5 ml 12/04/20 16:16 12/04/20 16:59 Xylocaine 2% Hcl 20 Ml Mdv IJ 12/04/20 16:17 5 ml STAT ONE Administration Lidocaine HCl Confirm 12/04/20 16:18 Xylocaine 2% Hcl 20 Ml Mdv Administered 12/04/20 16:19 Dose 5 ml .ROUTE .STK-MED ONE Trimethoprim/Sulfamethoxazole 1 tab 12/04/20 16:46 Bactrim Ds Tablet PO 12/04/20 16:47 STAT STA - Progress Progress: improved Air Movement: good Progress Note: Patient is a 40-year-old female presents to our ED with swelling at her right labia majora. After examination it was determined that patient has a Bartholin gland cyst. The cyst was incised and purulent fluid expressed. It looks like there is a Bartholin's gland abscess. Please see procedure note for details. Cultures obtained. Results pending the wound was packed. Patient received a dose of antibiotics in our ED. A prescription for the same was provided to patient. We initially intended to insert a Word catheter however we do not have word catheter is available to us at this time. Patient advised to keep the packing in for 48 hours. Patient to maintain her antibiotic regimen. Patient to follow-up with her primary care doctor in 48 hours to have the packing removed. Patient voices no other complaints or concerns at this time. Will discharge home. Pain well controlled. Portions of this note were created with voice recognition technology. There may be grammatical, spelling, punctuation or sound alike errors 12/04/20 16:52 12/04/20 16:54 Blood Culture(s) Obtained: Yes Antibiotics given: Yes Counseled pt/family regarding: diagnosis, need for follow-up - Departure Departure Disposition: Home Clinical Impression: Abscess of Bartholin's gland Condition: Stable Critical Care Time: No Referrals: DOCTOR,NO FAMILY [Primary Care Provider] - Additional Instructions: Discharge/Care Plan KENDALL SCHULZ was seen on 12/04/20 in the Emergency Room. The patient was counseled regarding Diagnosis,Lab results, Imaging studies, need for follow up and when to return to the Emergency Room. Prescriptions given: Discharge Note I have spoken with the patient and/or caregivers. I have explained the patient's condition, diagnosis and treatment plan based on the information available to me at this time. I have answered the patient's and/or caregiver's questions and addressed any concerns. The patient and/or caregivers have as good understanding of the patient's diagnosis, condition and treatment plan as can be expected at this point. The vital signs have been stable. The patient's condition is stable and appropriate for discharge from the emergency department. The patient will pursue further outpatient evaluation with the primary care physician or other designated or consulting physician as outlined in the discharge instructions. The patient and/or caregivers are agreeable to this plan of care and follow-up instructions have been explained in detail. The patient and/or caregivers have received these instruction. The patient/and or caregivers are aware that any significant change in condition or worsening of symptoms should prompt an immediate return to this or the closest emergency department or call 911. Prescriptions: Smz/Tmp Ds Tablet [Bactrim Ds Tablet] 1 udtab PO BID #14 tablet
[2020-12-04] MEDS ORDERED: BACTRIM DS TABLET PO ONE (17:05)
[2020-12-04 17:08] VITALS: BP 118/81; PULSE 89
== END 2020-12-04 17:22 | disposition home or self-care (01) ==
LOC: ED 13:50
DX: N75.1 Abscess of Bartholin's gland (principal)
CPT/HCPCS: 56405; 87070; 87077; 99284; A9270-GY

== ENCOUNTER 2021-03-09 10:34 | Emergency (ER) | payer MEDICAID, OTHER ==
--- NOTE | 2021-03-09 10:39 | ERPHSYRPT ---
- History of Present Illness Time Seen by Provider: 03/09/21 10:39 Source: patient, family Physician History: This is a 40-year-old white female who presents with a recurrent abscess in the entrance to her vagina on the right side. She had this in the past requiring an incision and drainage by her medical collections specialist. She was also placed on antibiotics. She does not want to have it incised and drained today. There is drainage spontaneously that began yesterday. There is tenderness also present. Patient now has insurance and wants her medical collections specialist to do the incision and drainage. She would like to be placed on antibiotics. She will call her medical collections specialist tomorrow morning to arrange up follow-up appointment Quality: painful Severity: mild (Mild to moderate) Location: other (Vaginal introitus right side) Associated Symptoms: swelling/mass/lumps (Right vaginal introitus), No fever Allergies/Adverse Reactions: haloperidol [From Haldol] Allergy (Mild, Verified 03/09/21 10:56) haloperidol lactate [From Haldol] Allergy (Mild, Verified 03/09/21 10:56) Hx Tetanus, Diphtheria Vaccination/Date Given: Yes Hx Influenza Vaccination/Date Given: No Hx Pneumococcal Vaccination/Date Given: No Travel Risk - International Travel Have you traveled outside of the country in past 3 weeks: No - Coronavirus Screening Are you exhibiting any of the following symptoms?: No Close contact with a COVID-19 positive Pt in past 14-21 Days: No - Review of Systems Constitutional: No Symptoms Eyes: No Symptoms Ears, Nose, & Throat: No Symptoms Respiratory: No Symptoms Cardiac: No Symptoms Abdominal/Gastrointestinal: No Symptoms Genitourinary Symptoms: Other (Open draining abscess right vaginal introitus) Musculoskeletal: No Symptoms Skin: No Symptoms Neurological: No Symptoms Psychological: No Symptoms Endocrine: No Symptoms Hematologic/Lymphatic: No Symptoms Immunological/Allergic: No Symptoms All Other Systems: Reviewed and Negative - Past Medical History Pertinent Past Medical History: Yes Neurological History: No Pertinent History ENT History: No Pertinent History Cardiac History: No Pertinent History Respiratory History: Asthma Endocrine Medical History: No Pertinent History Musculoskeletal History: Fractures GI Medical History: Hepatitis History: No Pertinent History Psycho-Social History: Bipolar Female Reproductive Disorders: Other Other Medical History: hepatitis C - Past Surgical History Past Surgical History: Yes Neuro Surgical History: No Pertinent History Cardiac: No Pertinent History Respiratory: No Pertinent History Gastrointestinal: No Pertinent History Musculoskeletal: No Pertinent History Female Surgical History: Section Other Surgical History: tubal ligation, cold cone - Social History Smoking Status: Current every day smoker How long have you smoked: 25 YEARS Exposure to second hand smoke: No Drug Use: none Patient Lives Alone: No - Nursing Vital Signs Nursing Vital Signs: Initial Vital Signs Temperature 98.3 F 03/09/21 10:46 Pulse Rate 94 H 03/09/21 10:46 Blood Pressure 115/69 03/09/21 10:46 O2 Sat by Pulse Oximetry 96 03/09/21 10:46 Pain Scale Pain Intensity 7 - Physical Exam General Appearance: no apparent distress, alert, anxiety Eye Exam: PERRL/EOMI, eyes nml inspection Ears, Nose, Throat Exam: normal ENT inspection, moist mucous membranes Neck Exam: normal inspection, non-tender, supple, full range of motion Respiratory Exam: airway intact, No chest tenderness, No respiratory distress Gastrointestinal/Abdomen Exam: No tenderness Pelvic Exam: other (Open, draining abscess right vaginal introitus. Culture and sensitivity was taken from this drainage site) Rectal Exam: No not done Back Exam: normal inspection, normal range of motion, No CVA tenderness, No vertebral tenderness Extremity Exam: normal inspection, normal range of motion, pelvis stable Neurologic Exam: alert, oriented x 3, cooperative, nuclear medicine pet ct technologist II-XII nml as tested, normal mood/affect, nml cerebellar function, nml station & gait, sensation nml Skin Exam: normal color, warm, dry, other (Draining abscess, see above) SpO2 Interpretation: normal O2 Delivery: Room Air - Course Nursing assessment & vital signs reviewed: Yes Ordered Tests: Active Orders 24 hr Category Date Time Status CULTURE,WOUND Stat Lab 03/09/21 Ordered Medication Summary Generic Name Dose Route Start Last Admin Trade Name Freq PRN Reason Stop Dose Admin Ceftriaxone Sodium 1,000 mg 03/09/21 11:14 Rocephin 1000 Mg Inj IM 03/09/21 11:15 STAT ONE Trimethoprim/Sulfamethoxazole 1 tab 03/09/21 11:15 Bactrim Ds Tablet PO 03/09/21 11:16 STAT ONE - Progress Progress: unchanged Counseled pt/family regarding: diagnosis, need for follow-up - Departure Departure Disposition: Home Clinical Impression: Abscess, vagina Condition: Stable Critical Care Time: No Referrals: DOCTOR,NO FAMILY [Primary Care Provider] - Additional Instructions: Sitz bath and warm soapy water and/or Epson salts twice a day. Take your medication as prescribed. Call your medical collections specialist tomorrow morning to arrange a follow-up appointment. Prescriptions: Smz/Tmp Ds Tablet [Bactrim Ds Tablet] 1 udtab PO BID #14 tablet
[2021-03-09] MEDS ORDERED: Rocephin 1000 MG INJ IM ONE (11:14)
[2021-03-09] MEDS ORDERED: BACTRIM DS TABLET PO ONE ×2 (11:15→11:22)
[2021-03-09] MEDS ORDERED: NORCO 5/325 MG PO ONE (11:20)
[2021-03-09] MEDS ORDERED: NORCO 5/325 MG ONE (11:23)
[2021-03-09] MEDS ORDERED: Rocephin 1000 MG INJ ONE (11:23)
[2021-03-09 11:57] VITALS: BP 107/66; PULSE 90; O2SAT 98
== END 2021-03-09 11:57 | disposition home or self-care (01) ==
LOC: ED 10:34
DX: N76.0 Acute vaginitis (principal)
CPT/HCPCS: 87070; 87077; 96372; 99284; J0696; A9270-GY